=== PATIENT | female | born 1985 | race Caucasian/White ===

== ENCOUNTER 2018-04-28 20:12 | Emergency (ER) | payer OTHER ==
--- NOTE | 2018-04-28 20:47 | PDOC ---
Rapid Medical Evaluation Time Seen by Provider: 04/28/18 20:44 Medical Evaluation: Allergies Allergy/AdvReac Type Severity Reaction Status Date / Time No Known Allergies Allergy Verified 08/08/16 17:34 04/28/18 20:44 I have performed a brief in-person evaluation of this patient. The patient presents with a chief complaint of: Rash x 1 week, itching. STates seen by pmd on Saturday taking cream and pills but state not getting better. Patient reports rash seems to be spreading. Denies repiratory involvement Pertinent physical exam findings: NAD unlabored breathing erythematous plaques on different part of body I have ordered the following: urine The patient will proceed to the ED for further evaluation
[2018-04-28 20:49] VITALS: BP 132/97; PULSE 78; TEMP 99.3; BMI 27.3
[2018-04-28] MEDS ORDERED: DEXAMETHASONE LIQUID 0.5 MG/5 ML 240 ML BULK BOTTLE PO ONE (22:33)
[2018-04-28] MEDS ORDERED: DEXAMETHASONE SOD PHOSPHATE 10 MG/1 ML VIAL ONE (22:36)
--- NOTE | 2018-04-28 22:43 | PDOC ---
History of Present Illness - General Chief Complaint: Rash Stated Complaint: RASH Time Seen by Provider: 04/28/18 20:44 - History of Present Illness Initial Comments: 32 -year-old female without any pre-existing comorbidities presents for evaluation of rash times one week. She was seen by her primary care doctor who gave her prescription for nystatin cream and fluconazole pills. Since that time her rashes gotten significantly worse. She has no other associated symptoms. She states her rash does itch her. 04/28/18 22:37 Past History - Past Medical History Allergies/Adverse Reactions: Allergies Allergy/AdvReac Type Severity Reaction Status Date / Time No Known Allergies Allergy Verified 04/28/18 20:49 Home Medications: Ambulatory Orders NK [No Known Home Medication] 04/28/18 Asthma: No Cancer: No Cardiac Disorders: No COPD: No Diabetes: No HTN: No Seizures: No Thyroid Disease: No - Immunization History Td Vaccination: No TDAP Vaccination: No Immunization Up to Date: Yes - Suicide/Smoking/Psychosocial Hx Smoking Status: No Smoking History: Never smoked Have you smoked in the past 12 months: No Number of Cigarettes Smoked Daily: 0 Information on smoking cessation initiated: No Hx Alcohol Use: No Drug/Substance Use Hx: No Substance Use Type: None Hx Substance Use Treatment: No Review of Systems - Review of Systems Integumentary: Yes: See HPI, Pruritus, Rash All Other Systems: Reviewed and Negative *Physical Exam - Vital Signs Last Vital Signs Temp Pulse Resp BP Pulse Ox 99.3 F 78 17 132/97 100 04/28/18 20:47 04/28/18 20:47 04/28/18 20:47 04/28/18 20:47 04/28/18 20:47 - Physical Exam Comments: Large maculopapular regular rash on the inner aspect of the left upper thigh. The rash involves her lower back posterior aspect of her right thigh as well as her anterior aspect of her right thigh. The biggest area of rash is on the left inner thigh. In the posterior aspect of the right thigh. The rash blanches there is no indication of secondary infection. There is no open vesicles. There is no tenderness. There is mild induration. There are no gross sensorimotor deficits in the lower extremities. Breathing is nonlabored 04/28/18 22:39 ED Treatment Course - ADDITIONAL ORDERS Additional order review: Laboratory Results 04/28/18 22:00 Urine HCG, Qual Negative Medical Decision Making - Medical Decision Making I've given her a dose of oral Decadron and mobile treat her rash with a antifungal steroid combination and have her follow-up with dermatology 04/28/18 22:41 *DC/Admit/Observation/Transfer Diagnosis at time of Disposition: Rash - Discharge Dispostion Disposition: HOME Condition at time of disposition: Stable Decision to Admit order: No - Referrals Referrals: Darek Campos MD [Primary Care Provider] - Lizbeth Strauss MD [Staff Physician] - Ilan Guillen MD [Non Staff, Medical] - Estevan Spann MD [Non Staff, Medical] - Irwin Serna MD [Non Staff, Medical] - Clif Khoury MD [Non Staff, Medical] - Dhruv Sherwood [Staff Physician] - Mary Srinivasan MD [Non Staff, Medical] - - Patient Instructions Printed Discharge Instructions: DI for Rash Additional Instructions: Your rash appears to be fungal. Please discontinue the medication you've been taking for your current rash as this may have exacerbated the rash. I've given you a dose of oral steroids and also given you a prescription for a steroid antifungal cream to use twice daily. Given you a list of dermatologists in the area which she should follow-up with tomorrow. Return to the emergency room should her symptoms worsen or go unresolved. - Post Discharge Activity
[2018-04-29] MEDS ORDERED: CLOTRIMAZOLE/BETAMET DIPROP 15 GM TUBE TP SCH (10:00)
== END 2018-04-28 22:44 | disposition home or self-care (01) ==
LOC: JERFT 20:12
DX: R21 Rash and other nonspecific skin eruption (principal)
CPT/HCPCS: 84703; 99281-25

== ENCOUNTER 2021-12-04 13:34 | Emergency (ER) | payer OTHER ==
[2021-12-04 13:54] VITALS: TEMP 97.7; BMI 28.3
[2021-12-04] MEDS ORDERED: SODIUM CHLORIDE 1,000 ML IV STA (14:24)
[2021-12-04] MEDS ORDERED: ACETAMINOPHEN 1000 MG/100 ML BAG IVPB ONE (14:24)
[2021-12-04] MEDS ORDERED: METOCLOPRAMIDE HCL INJECTION 10 MG/2 ML VIAL IVPB ONE (15:02)
[2021-12-04] MEDS ORDERED: diazePAM 2 MG TABLET PO ONE (15:02)
[2021-12-04] MEDS ORDERED: ACETAMINOPHEN INJECTION 100 ML IVPB ONE (15:05)
[2021-12-04] MEDS ORDERED: METOCLOPRAMIDE HCL INJECTION 10 MG/2 ML VIAL ONE (15:32)
[2021-12-04] MEDS ORDERED: diazePAM 2 MG TABLET ONE (15:33)
[2021-12-04 16:07] LABS: BASO % 0.5 % (0-2.0); EOS % 0.8 % (0-4.5); HEMOGLOBIN 13.8 GM/dL (10.7-15.3); MCH 30.6 pg (25.7-33.7); MCHC 32.9 g/dl (32.0-36.0); MEAN CELL VOLUME 92.8 fl (80-96); MEAN PLT VOLUME 8.7 fl (7.5-11.1); MONO % 7.7 % (3.8-10.2); PLATELET COUNT 246 10^3/uL (134-434); RBC 4.52 M/mm3 (3.60-5.2); RDW 13.3 % (11.6-15.6); WHITE BLOOD COUNT 8.5 K/mm3 (4.0-10.0)
[2021-12-04 18:15] LABS: CHLORIDE 108 mmol/L (98-107); SODIUM 141 mmol/L (136-145)
[2021-12-04 18:16] LABS: CALCIUM 8.6 mg/dL (8.5-10.1)
[2021-12-04 18:17] LABS: ALBUMIN 3.3 g/dl (3.4-5.0); ANION GAP 9 MMOL/L (8-16); BLOOD UREA NITROGEN 9.4 mg/dL (7-18); CO2 24 mmol/L (21-32)
[2021-12-04 18:18] LABS: GLUCOSE,RANDOM 68 mg/dL (74-106)
[2021-12-04 18:20] LABS: CREATININE 0.5 mg/dL (0.55-1.3); SGOT/AST 17 U/L (15-37)
[2021-12-04 18:22] LABS: BILIRUBIN,TOTAL 0.3 mg/dL (0.2-1); TOT PROT 6.6 g/dl (6.4-8.2)
[2021-12-04 18:23] LABS: ALK PHOS 64 U/L (45-117)
[2021-12-04 18:29] LABS: SGPT/ALT 20 U/L (13-61)
[2021-12-04 18:59] LABS: HCG,QUALITATIVE URINE Negative
[2021-12-04 19:00] LABS: EPI CELLS >36 /uL (0-25.1); HYALINE CASTS 1 /uL (0-3.1); URINE APPEARANCE CLEAR; URINE BACTERIA 769 /uL (0-1359); URINE BILIRUBIN NEGATIVE (NEGATIVE); URINE COLOR YELLOW; URINE GLUCOSE (UA) NEGATIVE (NEGATIVE); URINE KETONE NEGATIVE (NEGATIVE); URINE LEUK ESTERASE TRACE (NEGATIVE); URINE NITRITE NEGATIVE (NEGATIVE); URINE PROTEIN NEGATIVE (NEGATIVE); URINE RBC 48 /uL (0-23.9); URINE UROBILINOGEN 0.2 mg/dL (0.2-1.0); URINE WBC 25 /uL (0-25.8)
[2021-12-04 19:24] VITALS: BP 128/78; PULSE 72
== END 2021-12-04 19:24 | disposition home or self-care (01) ==
LOC: JER 13:34
PROC: 3E0333Z Introduction of Anti-inflammatory into Peripheral Vein, Percutaneous Approach (ICD-10-PCS; principal; 2021-12-04)
PROC: 3E033GC Introduction of Other Therapeutic Substance into Peripheral Vein, Percutaneous Approach (ICD-10-PCS; 2021-12-04)
PROC: 3E0337Z Introduction of Electrolytic and Water Balance Substance into Peripheral Vein, Percutaneous Approach (ICD-10-PCS; 2021-12-04)
DX: R00.2 Palpitations (principal); R42 Dizziness and giddiness
CPT/HCPCS: 36415; 70450-TC; 80053; 81003; 82550; 84484; 84703; 85025; 87086; 87186; 93005; 93010; 99285-25; C9803; J0131; U0003; U0005